=== PATIENT | female | born 1985 | race Caucasian/White ===

== ENCOUNTER 2016-11-21 13:45 | Emergency (ER) | payer OTHER ==
[~2016-11-21] VITALS: Ht 167.6 cm; Wt 61.4 kg
[2016-11-21 13:51] VITALS: BP 120/58; PULSE 83; RESP 16; O2SAT 98
[2016-11-21 14:45] LABS: BASOPHILS % (AUTO) 0.4 % (0-3); EOSINOPHILS % (AUTO) 3.4 % (0-5); MONOCYTES % (AUTO) 9.3 % (4-12); Mean Corpuscular Hemoglobin 31.1 pg (27.0-35.0); Mean Corpuscular Volume 92.3 fL (81-100); NEUTROPHILS % (AUTO) 45.8 % (40-74); Platelet Count 328 bil/L (150-400)
[2016-11-21 15:20] LABS: Lipase 19 U/L (13-60); Magnesium 2.2 mg/dL (1.6-2.6)
[2016-11-22] MEDS ORDERED: OMEP20CA11 PO (14:26)
[2016-11-22] MEDS ORDERED: SUCR1TAB30 PO (14:26)
[2016-11-22] MEDS ORDERED: QUET100T PO (14:27)
== END 2016-11-21 16:25 | disposition left against medical advice (07) ==
LOC: SED 13:45
DX: R10.9 Unspecified abdominal pain (principal); Z53.1 Procedure and treatment not carried out because of patient's decision for reasons of belief and group pressure

== ENCOUNTER 2016-11-22 10:47 | Emergency (ER) | payer OTHER ==
[~2016-11-22] VITALS: Ht 167.6 cm; Wt 61.4 kg
[2016-11-22 11:08] VITALS: BP 91/58; PULSE 64; RESP 15; O2SAT 98
--- NOTE | 2016-11-22 11:41 | ED.REPORT ---
HPI-General Illness Date of Service November 22, 2016 ED Provider: Celia Marie MD 31 y/o female with a hx of fibromyalgia, depression, anxiety and bipolar disorder presents to the ED complaining of "stabbing and burning" abdominal pain , onset for approximately a month.The pt reports she has violent vomiting episodes after eating, with some blood in the vomit yesterday morning. She reports "when I eat, I fell like I'm burning my stomach." Associated sx include back pain, diaphoresis, chills, dizziness and melena for over a week. The pt reports she has been shaking and felling numb in her right foot up to her hip because of the pain. She denies LOC, chest pain and heart burn. The pt takes lamotrigine. She reports she has been hypomanic for the past few days. Nursing Notes Stated Complaint: POSS GALLBLADDER,SCIATICA NERVE IN LOW RT BACK Chief Complaint: Back Pain or Injury Nursing Notes Reviewed: Yes Allergies: Coded Allergies: amitriptyline (Verified Allergy, Intermediate, HIVES, 11/22/16) Scheduled Omeprazole (Omeprazole) 20 Mg Capsule.dr 20 MG PO BID Quetiapine Fumarate (Seroquel) 100 Mg Tablet 100 MG PO HS Sucralfate (Carafate) 1 Gm Tablet 1 GM PO QID General Time Seen by MD: 11:36 Chief Complaint Abdominal pain Hx Obtained From: Patient Arrived By: Walk-in Sudden in Onset?: No Onset Occurred: More than a week ago... (4 weeks) Symptom Duration: Since onset Location: : Abdomen Quality: Burning Radiation: : Back Severity: Current: Moderate Severity: Maximum: Severe Exacerbated by: Eating Recent Healthcare: Recent doctor visit Similar Sx Previous: No Past Medical History Past Medical History H/o anxiety Bipolar Fibromyalgia Reports: Depression Past Surgical History d and c Reports: Smoking History Current Every Day Smoker, Former Smoker Social History Alcohol Use: Denies alcohol use Drug Use: THC, Other Other Social History: Occupation lives with Ambulatory Status Independent Review of Systems Full Review of Systems Constitutional: Reports: Chills Cardiovascular: Denies: Chest pain GI: Reports: Abdominal pain, Melena, Nausea, Vomiting Musculoskeletal: Reports: Back pain Skin: Reports Diaphoresis Neurologic: Reports: Dizziness, Numbness, Shaking, Denies: Change LOC Complete sys rev & neg: except as marked. Physical Exam Vital Signs Vital Signs Date Time Temp Pulse Resp B/P Pulse Ox O2 Delivery O2 Flow Rate FiO2 11/22/16 11:08 36.3 64 15 91/58 98 Initial VS: Reviewed General/Constitutional: Awake, Alert, Cooperative Behavior: Positive: Anxious Baseline fine tremor Abdomen: Atraumatic, No guarding, No rebound Tenderness/Guarding/Rebound: Positive: Tender LUQ..., Tender RUQ..., Tender epigastric Bowel Sounds / Distention: Positive: Bowel sounds hypoactive Lower Extremity / Pelvis / MS: Atraumatic, Full range of motion, Neurologic intact, Vascular intact Non-physiological numbness in lower extremities. Rectum / Perineum: Atraumatic Guaiac positive. Neurologic: Oriented X3, Speech NL, No motor deficits, No sensory deficits Symmetrical strength in both lower extremities. Interpretation & Diagnostics Lab Results Interpretation Result Diagram: 11/22/16 1130 11/22/16 1130 Test 11/22/16 11:30 11/22/16 12:27 White Blood Count 5.3th/mm3 (3.8-10.1) Red Blood Count 4.13mil/mm3 (3.90-5.20) Hemoglobin 12.8g/dL (12.0-15.6) Hematocrit 38.0% (35.0-46.0) Mean Corpuscular Volume 92.0fL (81-100) Mean Corpuscular Hemoglobin 31.0pg (27.0-35.0) Mean Corpuscular Hemoglobin Concent 33.7% (32.0-37.0) Red Cell Distribution Width 12.6% (12.3-15.4) Platelet Count 295bil/L (150-400) Neutrophils (%) (Auto) 41.3% (40-74) Lymphocytes (%) (Auto) 43.9% (14-46) Monocytes (%) (Auto) 9.9% (4-12) Eosinophils (%) (Auto) 4.1% (0-5) Basophils (%) (Auto) 0.6% (0-3) Sodium Level 137mEq/L (134-144) Potassium Level 4.1mEq/L (3.5-5.2) Chloride Level 99mEq/L (97-108) Carbon Dioxide Level 24mmol/L (18-29) Blood Urea Nitrogen 8mg/dL (6-20) Creatinine 0.58mg/dL (0.57-1.00) Estimat Glomerular Filtration Rate 176mL/min (>59) Glucose Level 86mg/dL (60-99) Calcium Level 9.0mg/dL (8.5-10.1) Magnesium Level 2.3mg/dL (1.6-2.6) Total Bilirubin 0.5mg/dL (0.0-1.2) Aspartate Amino Transf (AST/SGOT) 14U/L (0-50) Alanine Aminotransferase (ALT/SGPT) 10U/L (0-32) Alkaline Phosphatase 62U/L (25-150) Total Protein 7.4g/dL (6.4-8.4) Albumin 4.5g/dL (3.4-5.0) Lipase 13U/L (13-60) Urine Color Straw (YELLOW) Urine Appearance Hazy (CLEAR,HAZY) Urine pH 7.5 (5.0-8.0) Urine Specific [place] 1.010 (1.003-1.035) Urine Protein Negativemg/dL (NEG,TRACE) Urine Glucose (UA) Negativemg/dL (NEGATIVE) Urine Ketones Negativemg/dL (NEGATIVE) Urine Occult Blood Negative (NEGATIVE) Urine Nitrite Negative (NEGATIVE) Urine Bilirubin Negative (NEGATIVE) Urine Urobilinogen Normalmg/dL (NORMAL) Urine Leukocyte Esterase Negative (NEGATIVE) Urine RBC 0-2/hpf (0-2) Urine WBC 0-5/hpf (0-5) Urine Epithelial Cells Occasional/hpf (NONE-MOD) Urine Crystals None seen (NONE SEEN) Urine Bacteria None/hpf (NONE-FEW) Urine Hyaline Casts None/lpf (NONE) Urine Granular Casts None seen (NONE SEEN) Urine Waxy Casts None seen (NONE SEEN) Urine Red Blood Cell Casts None seen (NONE SEEN) Urine White Blood Cell Casts None seen (NONE SEEN) Urine Mucus None seen (None Seen) Urine Trichomonas None seen (NONE SEEN) Urine Yeast None (NONE SEEN) Urinalysis Comment None Urine Culture Reflexed Not indicated Re-Eval/Medical Decision Time of Eval: 13:36 Patient Status: Condition improved Re-Evaluation/Progress Note: Rechecked pt. Discussed lab results and diagnosis. Informed the pt of the plan to discharge. Pt understands and agrees with plan. F/U instructions and RTER warning given. All questions addressed. Counseled Regarding: Diagnosis, Lab results, Need for follow-up, When/why to return to ED Discharge & Departure Primary Impression: Abdominal pain Abdominal location: epigastric Qualified Code: R10.13 - Epigastric pain Additional Impression: Hypomania Disposition: Home Discharge Condition All VS Reviewed: Yes Condition: Stable Additional Instructions: Your labs are reassuring. There is no sign of anemia, pancreatitis, kidney problem or liver problem. You may have gastritis but it is more likely that you have a gastric ulcer. Take Prilosec (acid shannan) and carafate (coats the stomach) as prescribed. Take Seroquel 100mg at night for hypomania. These prescriptions have been sent electronically to [facility] for you today. Improved sleep will also help with your back pain. You can add Tylenol for persistent back pain too. Follow up with Dr. Houston, freezer machine operator, for furthr evaluation. He may recommend upper endoscopy. Return to the emergency department in case of worsening abdominal pain, vomiting or any new or concerning symptoms. Referrals: MILE PEREZ (PCP) Amandeep Houston MD Scribe Attestation Portions of this note were transcribed by Laura Taylor. I, , personally performed the history, physical exam and medical decision-making;I reviewed and confirmed the accuracy of the information in the transcribed note. Signed by Vincenzo Coleman. 11/22/16 1871 copies to: MILE PEREZ; Amandeep Houston MD, Shawna L MD November 22, 2016 11:41 Laura Taylor November 22, 2016 12:04
[2016-11-22 11:48] LABS: BASOPHILS % (AUTO) 0.6 % (0-3); EOSINOPHILS % (AUTO) 4.1 % (0-5); MONOCYTES % (AUTO) 9.9 % (4-12); NEUTROPHILS % (AUTO) 41.3 % (40-74); Platelet Count 295 bil/L (150-400)
[2016-11-22] MEDS ORDERED: 0.9% Sodium Chloride 1,000 ML IV ONE (12:02)
[2016-11-22] MEDS ORDERED: Ondansetron 2 mg/mL 2 mL Inj IVPUSH ONE (12:05)
[2016-11-22] MEDS ORDERED: Pantoprazole 4 mg/mL 10 mL Inj IVPUSH ONE (12:05)
[2016-11-22] MEDS ORDERED: HYDROmorphone 0.5 mg/0.5 mL iSecure Syringe IVPUSH PRN (12:05)
[2016-11-22] MEDS ORDERED: HYDROmorphone 1 mg/mL Inj IVPUSH PRN (12:05)
[2016-11-22 12:24] LABS: Magnesium 2.3 mg/dL (1.6-2.6)
[2016-11-22 12:44] LABS: APPEARANCE,URINE HAZY (CLEAR,HAZY); COLOR,URINE STRAW (YELLOW); PH,URINE 7.5 (5.0-8.0)
[2016-11-22 12:45] LABS: OCCULT BLOOD,URINE NEGATIVE (NEGATIVE); UROBILINOGEN,URINE NORMAL (NORMAL)
[2016-11-22] MEDS ORDERED: OMEP20CA11 PO (14:26)
[2016-11-22] MEDS ORDERED: SUCR1TAB30 PO (14:26)
[2016-11-22] MEDS ORDERED: QUET100T PO (14:27)
== END 2016-11-22 14:02 | disposition home or self-care (01) ==
LOC: SED 10:47
DX: R10.13 Epigastric pain (principal); F30.8 Other manic episodes; M79.7 Fibromyalgia; F31.9 Bipolar disorder, unspecified; F17.200 Nicotine dependence, unspecified, uncomplicated; Z88.8 Allergy status to other drugs, medicaments and biological substances
CPT/HCPCS: 36415; 80053; 81000; 81025; 83690; 83735; 85025; 86850; 96361; 96374; 96375; 96376; 99284; J1170; J2060; J2405; J7030